=== PATIENT | male | born 1995 | race Caucasian/White ===

== ENCOUNTER 2023-08-22 13:38 | Emergency (ER) | payer OTHER ==
[~2023-08-22] VITALS: Ht 175.3 cm; Wt 64.9 kg
[2023-08-22 13:44] VITALS: BP 108/49; PULSE 65; TEMP 98; O2SAT 97
[2023-08-22] MEDS ORDERED: PRED20TA PO (16:04)
[2023-08-22 16:27] VITALS: RESP 16
[2023-08-22] MEDS: ketorolac trometh. 30mg/ml inj. IV ONE (16:27)
[2023-08-22] MEDS: ketorolac trometh inj. 60 MG/2 ML VIAL IM ONE (16:30)
== END 2023-08-22 17:08 | disposition home or self-care (01) ==
LOC: ER 13:39
DX: M76.62 Achilles tendinitis, left leg (principal); Z88.0 Allergy status to penicillin
CPT/HCPCS: 73630; 96374; 99283; J1885

== ENCOUNTER 2024-02-25 17:55 | Emergency (ER) | payer MEDICAID, OTHER ==
[~2024-02-25] VITALS: Ht 175.3 cm; Wt 65.9 kg
[2024-02-25 18:09] LABS: BASOPHILS # (AUTO) 0.1 X10'3 (0-0.2); BASOPHILS % (AUTO) 0.4 % (0-1); EOSINOPHILS % (AUTO) 0.2 % (0-6); HEMATOCRIT 47.9 % (42.0-52.0); HEMOGLOBIN 16.3 g/dl (14.0-17.9); LYMPHOCYTES # (AUTO) 2.7 X10'3 (1.1-4.8); MEAN CORPUSCULAR HEMOGLOBIN 29.8 PG (27.0-31.0); MEAN CORPUSCULAR HGB CONC 34.1 g/dL (33.0-36.5); MEAN CORPUSCULAR VOLUME 87.4 FL (78-98); MEAN PLATELET VOLUME 8.6 FL (7.4-10.4); MONOCYTES # (AUTO) 0.9 X10'3 (0-0.9); MONOCYTES % (AUTO) 6.2 % (2-12); NEUTROPHILS # (AUTO) 10.5 X10'3 (1.8-7.7); NEUTROPHILS % (AUTO) 74.2 % (42-75); PLATELET COUNT 332 X10'3 (140-440); RED BLOOD COUNT 5.48 X10'6 (4.70-6.10); RED CELL DISTRIBUTION WIDTH 12.6 % (11.5-14.5); WHITE BLOOD COUNT 14.2 X10'3 (4.5-11.0)
[2024-02-25 18:26] LABS: ALANINE AMINOTRANSFERASE 11 U/L (12-78); ALBUMIN 4.6 G/DL (3.4-5.0); ALBUMIN/GLOBULIN RATIO 1.4 (1.1-1.5); ALKALINE PHOSPHATASE 56 IU/L (46-116); ANION GAP 12 (8-16); ASPARTATE AMINO TRANSFERASE 15 U/L (10-37); BILIRUBIN,TOTAL 1.9 MG/DL (0.1-1.0); BLOOD UREA NITROGEN 12 MG/DL (7-18); BUN/CREATININE RATIO 11.1 (10.0-20.0); CALCIUM 9.6 MG/DL (8.5-10.1); CHLORIDE 99 MMOL/L (99-107); CREATININE 1.08 MG/DL (0.60-1.10); GLUCOSE 108 MG/DL (70-104); POTASSIUM 3.8 MMOL/L (3.5-5.1); SODIUM 135 MMOL/L (135-145); TOTAL CARBON DIOXIDE 24.5 MMOL/L (24-32); TOTAL PROTEIN 7.8 G/DL (6.4-8.2); eCRCL 93 ML/MIN; eGFR 80 ML/MIN
[2024-02-25 18:38] LABS: PRO BRAIN NATRIURETIC PEPTIDE 49 PG/ML (0-125)
[2024-02-25 19:07] LABS: ALBUMIN 4.6 G/DL (3.4-5.0); AMYLASE 30 U/L (25-115); ANION GAP 14 (8-16); BLOOD UREA NITROGEN 12 MG/DL (7-18); BUN/CREATININE RATIO 11.5 (10.0-20.0); CALCIUM 9.5 MG/DL (8.5-10.1); CHLORIDE 99 MMOL/L (99-107); CREATININE 1.04 MG/DL (0.60-1.10); GLUCOSE 106 MG/DL (70-104); LIPASE 19 U/L (16-77); POTASSIUM 3.5 MMOL/L (3.5-5.1); SODIUM 135 MMOL/L (135-145); TOTAL CARBON DIOXIDE 21.6 MMOL/L (24-32); eCRCL 97 ML/MIN; eGFR 84 ML/MIN
[2024-02-25] MEDS: haloperidol lactate 5mg/ml inj IM ONE (19:40)
[2024-02-25] MEDS: normal saline 1000ml 1,000 ML IV ONE (19:40)
[2024-02-25] MEDS: proCHLORperazine 10 MG/2 ml inj IV ONE (20:58)
[2024-02-25 21:18] VITALS: BP 139/89; PULSE 65; RESP 17; TEMP 97.8; O2SAT 100
[2024-02-25] MEDS: mag hydrox/Alum hydrox/simeth 30ml oral suspension PO ONE (22:06)
[2024-02-25] MEDS: LIDOcaine 2% Viscous 15ml cup MM STA (22:06)
[2024-02-25] MEDS: dicyclomine 10 MG capsule PO ONE (22:07)
[2024-02-25] MEDS: pantoprazole 40 MG vial IV ONE (22:07)
[2024-02-25] MEDS ORDERED: METO5TAB98 PO (22:40)
[2024-02-25] MEDS ORDERED: OMEP40CA21 PO (22:40)
[2024-02-25] MEDS ORDERED: DICY20TA17 PO (22:40)
== END 2024-02-25 22:51 | disposition home or self-care (01) ==
LOC: ER 17:56
DX: R11.10 Vomiting, unspecified (principal); F12.90 Cannabis use, unspecified, uncomplicated; R10.84 Generalized abdominal pain; R07.89 Other chest pain; R53.1 Weakness; Z88.0 Allergy status to penicillin
CPT/HCPCS: 36415; 80048; 80053; 82150; 83690; 83880; 84484; 85025; 93005; 96361; 96372; 96374; 96375; 99284; J0780; J1630; J2470; J7030

== ENCOUNTER 2024-02-27 16:00 | Emergency (ER) | payer MEDICAID ==
[~2024-02-27] VITALS: Ht 177.8 cm; Wt 64.7 kg
[~2024-02-27 16:00] MED LIST: DICY20TA17 PO; METO5TAB98 PO; OMEP40CA21 PO
[2024-02-27 16:05] VITALS: TEMP 96.8
[2024-02-27] MEDS: haloperidol lactate 5mg/ml inj IM ONE (16:25)
[2024-02-27 17:36] VITALS: BP 114/66; PULSE 76; RESP 18; O2SAT 99
== END 2024-02-27 17:38 | disposition home or self-care (01) ==
LOC: ER 16:01
DX: R11.15 Cyclical vomiting syndrome unrelated to migraine (principal); R11.11 Vomiting without nausea; K31.84 Gastroparesis; Z88.0 Allergy status to penicillin; Z79.899 Other long term (current) drug therapy
CPT/HCPCS: 74176; 96372; 99285; J1630

== ENCOUNTER 2024-11-18 19:31 | Emergency (ER) | payer MEDICAID ==
[~2024-11-18] VITALS: Ht 175.3 cm; Wt 65.9 kg
[~2024-11-18 19:31] MED LIST changes: -METO5TAB98 PO; -OMEP40CA21 PO
[2024-11-18 21:24] VITALS: BP 118/70; PULSE 65; RESP 18; TEMP 98.6; O2SAT 99
--- NOTE | 2024-11-18 21:44 | Physician Documentation ---
History of Present Illness ~ Chief Complaint: Foot pain Stated Complaint: LEFT FOOT PAIN Time Seen by MD: 21:11 Primary Medical Doctor: [facility] HPI This 29-year-old male presents with pain to his left foot, patient recently had Achilles tendon repair and was supposed to be nonweightbearing, however he tripped and accidentally stood on the left leg causing him some pain, patient reports he was concerned that he damage the repair. Patient reports no new numbness or tingling to the foot or toes. Tetanus witin 5 years: No Medication Reconciliation Allergies: Coded Allergies: Penicillins (Verified Allergy, Mild, HIVES, 11/18/24) Scheduled Dicyclomine HCl (Dicyclomine HCl), 1 TAB PO Q8H Past Medical History Past Medical History: No Pertinent History Past Surgical History: noncontributory Review of Systems ROS Left foot and ankle pain as stated above in the HPI, otherwise all systems are reviewed and negative. Physical Exam Vital Signs: Temperature: 98.6, Source: Temporal, Heart Rate: 65, Respiratory Rate: 18, BP: 118/70, Pulse Oximetry: 99, Weight: 65.910 Oxygen Flow Rate: 0 Physical Exam VITALS: Reviewed and as above. GENERAL: Alert, nontoxic appearing, no apparent distress. RESPIRATORY: No increased work of breathing, no respiratory distress, speaking in full clear sentences EXTREMITIES: Left lower extremity in a splint, capillary refill brisk in the toes, pedal pulse strong and intact, no pain out of proportion with exam Progress Results/Orders Results/Orders Orders - NGHIA ROWE Foot, Complete (3vw Min) (11/18/24 20:19) Completed Orders - NGHIA ROWE Foot, Complete (3vw Min) (11/18/24 20:19) Vital Signs 11/18/24 11/18/24 19:38 21:24 Temp 98.4 98.6 Pulse 68 65 Resp 16 18 B/P (MAP) 116/93 118/70 Pulse Ox 100 99 O2 Flow Rate 0 EKG/XRAY/CT/US/VASC/MRI Bone/Soft Tissue X-Ray (Ext.) : Additional Comment Clinical History FALL Comparison None Technique: Three radiographs were submitted for review. Without Contrast ELISHA COX, [id number] FINDINGS:/IMPRESSION: Suspect postoperative changes at the posterior calcaneus. A splint overlies the distal lower leg and foot. No radiopaque foreign body seen. No acute fracture seen. This report was electronically signed by Juju Hawley MD on 11/18/2024 9:53:28 PM. Electronically Signed by:JUJU HAWLEY MD Date & Time: 11/18/242155 Dictated by: JUJU HAWLEY MD Dictation date and time: 11/18/242155 Medical Decision Making Findings This 29-year-old male with history of recent surgery to his left Achilles tendon presented with left foot and ankle pain after accidentally bearing weight on his left foot as he was supposed to be nonweightbearing, x-ray did not demonstrate new fracture or dislocation and physical exam was reassuring as the foot was neurovascularly intact, patient did not report the pain as severe or out of proportion to make me suspect compartment syndrome. It was additionally reassuring patient reported the pain was decreasing in intensity I suspect pa tient may have aggravated his injury without permanent damage. Patient eloped from the emergency department prior to further exam or discussion on follow up care. Ankle Diff Dx:Considerations: Include: Contusion, Fracture-metatarsal, Fracture-fibula, Fracture-tarsal, Fracture-tibia, Gout, Malunion, Neurovascular injury, Nonunion, Osteomyelitis, Sprain, Other (Compartment syndrome) Departure Disposition: 07 LEFT AWOL/ELOPED Impression: Primary Impression: Foot pain Qualified Codes: M79.672 - Pain in left foot Condition: Stable Referrals: NO PRIMARY CARE PROVIDER (PCP) Signature Scribe Signature: No scribe Attestation: The note accurately reflects work and decisions made by me.IAN Dailey 11/19/24 04:00 NGHIA ROWE November 18, 2024 21:44
--- NOTE | 2024-11-18 21:56 | RADIOLOGY REPORT ---
Clinical History FALL Comparison None Technique: Three radiographs were submitted for review. Without Contrast ELISHA COX, [id number] FINDINGS:/IMPRESSION: Suspect postoperative changes at the posterior calcaneus. A splint overlies the distal lower leg and foot. No radiopaque foreign body seen. No acute fracture seen. This report was electronically signed by Jensen Peterson MD on 11/18/2024 9:53:28 PM.
== END 2024-11-18 21:30 | disposition left against medical advice (07) ==
LOC: ER 19:31
DX: M79.672 Pain in left foot (principal); Z88.0 Allergy status to penicillin
CPT/HCPCS: 73630; 99283